=== PATIENT | female | born 1990 | race Caucasian/White ===

== ENCOUNTER 2025-02-23 13:16 | Outpatient (REF) | payer MEDICAID, SELFPAY | END 2025-02-23 13:17 | disposition home or self-care (01) | LOC: LBN 13:16 | PROVIDERS: PCP Nurse Practitioner | DX: R30.0 Dysuria (principal); R82.89 Other abnormal findings on cytological and histological examination of urine | CPT/HCPCS: 87086 ==

== ENCOUNTER 2025-03-23 15:23 | Outpatient (REF) | payer MEDICAID, SELFPAY ==
[2025-03-23 14:17] LABS: Prot/Crea Ur Ratio 0.11 mg/mg Cr
== END 2025-03-23 15:24 | disposition home or self-care (01) ==
LOC: LBN 15:23
DX: R80.9 Proteinuria, unspecified (principal)
CPT/HCPCS: 82565; 84156